=== PATIENT | female | born 1945 | race Caucasian/White ===

== ENCOUNTER 2021-07-08 04:47 | Emergency (ER) | payer BC ==
[~2021-07-08] VITALS: Ht 152.4 cm; Wt 63.5 kg
[2021-07-08] MEDS ORDERED: ATIVAN0.5 M1 PO (05:01)
[2021-07-08] MEDS ORDERED: TYLENOL325 M1 PO (05:01)
[2021-07-08] MEDS ORDERED: VITAMIN D325 MC3 PO (05:02)
[2021-07-08] MEDS ORDERED: HYDROCODON-ACE1 EAC7 PO (05:02)
[2021-07-08] MEDS ORDERED: CALCIUM500 MG PO (05:02)
[2021-07-08] MEDS ORDERED: LISINOPRIL20 MG PO (05:03)
[2021-07-08] MEDS ORDERED: LOTEMAX5 ML OPHTHALMIC (05:03)
[2021-07-08] MEDS ORDERED: LIDODERM1 EACH TOP (05:03)
[2021-07-08] MEDS ORDERED: MELATONIN5 MG SUBLING (05:04)
[2021-07-08] MEDS ORDERED: MIRTAZAPINE30 M1 PO (05:04)
[2021-07-08] MEDS ORDERED: NAMENDA 5 MG TAB5 M1 PO (05:04)
[2021-07-08] MEDS ORDERED: SUPER THERAVIT1 EACH PO (05:04)
[2021-07-08] MEDS ORDERED: OMEPRAZOLE 20 M20 M1 PO (05:05)
[2021-07-08] MEDS ORDERED: MIRALAX119 GM PO (05:05)
[2021-07-08] MEDS ORDERED: SIMVASTATIN80 MG PO (05:05)
[2021-07-08] MEDS ORDERED: TOLTERODINE TART2 M1 PO (05:06)
[2021-07-08 07:39] VITALS: BP 164/69
== END 2021-07-08 10:11 | disposition home or self-care (01) ==
LOC: M.ERS 04:47
DX: S00.03XA Contusion of scalp, initial encounter (principal); F02.80 Dementia in other diseases classified elsewhere, unspecified severity, without behavioral disturbance, psychotic disturbance, mood disturbance, and anxiety; K21.9 Gastro-esophageal reflux disease without esophagitis; F41.9 Anxiety disorder, unspecified; F32.9 Major depressive disorder, single episode, unspecified; Z79.891 Long term (current) use of opiate analgesic; Z79.1 Long term (current) use of non-steroidal anti-inflammatories (NSAID); Z79.899 Other long term (current) drug therapy; Z88.8 Allergy status to other drugs, medicaments and biological substances; W01.0XXA Fall on same level from slipping, tripping and stumbling without subsequent striking against object, initial encounter; Y93.89 Activity, other specified; Y92.89 Other specified places as the place of occurrence of the external cause; Y99.8 Other external cause status